=== PATIENT | male | born 1955 ===

== ENCOUNTER 2018-02-11 00:09 | Day surgery (SDC) | payer BC ==
[~2018-02-11] VITALS: Ht 175.3 cm; Wt 79.8 kg
[2018-02-11] MEDS ORDERED: PROPOFOL EMUL(*) 10MG/ML 20 ML 40 ML ONE (07:02)
[2018-02-11 07:16] VITALS: BP 124/77
[2018-02-11] MEDS ORDERED: NORMOSOL R SOLN(*) 1000 ML BAG 1,000 ML IV PRN (08:00)
[2018-02-11] MEDS ORDERED: LIDOCAINE/SOD BICARB 8.4% SYR ID ONE (08:00)
[2018-02-11 09:38] VITALS: BP 100/71
--- NOTE | 2018-02-11 09:41 | Short(Outpt) Discharge Summary ---
Discharge Summary Reason for Hosp/Final Diag: (1) History of colon polyps Status: Chronic Hospital Course & Plan: Colonoscopy with polypectomy x1 completed without problems. Departure Discharge to: Home, Self Care Discharge Instructions Home Meds No Active Prescriptions or Reported Meds Diet: Regular Activity: As Tolerated Special Instructions: Your colonoscopy was completed without problems and your prep was excellent (Good Job!!). I removed a single small polyp from your colon and it was sent to pathology. My office will call you in the next week or so and let you know what the polyp is but your next colonoscopy should be in 5 years due to your previous history of colon polyps. LUL MCCALLUM MD Feb 11, 2018 09:41
[2018-02-11 10:00] VITALS: BP 140/52
[2018-02-11 10:18] VITALS: BP 126/86
[2018-02-11 10:20] VITALS: BP 128/87
== END 2018-02-11 10:25 | disposition home or self-care (01) ==
LOC: OR 00:09
PROVIDERS: ATTEND Surgery
DX: Z12.11 Encounter for screening for malignant neoplasm of colon (principal); D12.4 Benign neoplasm of descending colon; Z86.010 Personal history of colon polyps
CPT/HCPCS: 00811; 45385; 88305; J2704

== ENCOUNTER → 2018-08-18 | Outpatient (CLI) | payer BC ==
[~2018-08-18] MED LIST: TRIA15OI20 TP
[2018-08-18 08:44] LABS: PLATELET COUNT, AUTOMATED 263 K/uL (150-450)
[2018-08-18 09:24] LABS: LDL CHOLESTEROL 125 mg/dl
== END ==
LOC: LAB 08:07
PROVIDERS: ATTEND Internal Medicine
DX: Z00.00 Encounter for general adult medical examination without abnormal findings (principal); Z86.010 Personal history of colon polyps
CPT/HCPCS: 36415; 81001; 82040; 82247; 82310; 82374; 82435; 82465; 82565; 82947; 83718; 84075; 84132; 84153; 84155; 84295; 84443; 84450; 84460; 84478; 84520; 85025; 87522

== ENCOUNTER → 2018-08-24 | Outpatient (CLI) | payer BC ==
--- NOTE | 2018-08-24 09:50 | RADIOLOGY IMAGING REPORT ---
FACILITY: [facility] PATIENT NAME: Hipolito Morocho : 1955 MR: [id number] V: [id number] EXAM DATE: ORDERING PHYSICIAN: AMARA MARLOW TECHNOLOGIST: Location: [facility] - [place] Patient: Hipolito Morocho : 1955 Visit/Account:[id number] Date of Sevice: 08/24/2018 LIVER HISTORY: Elevated liver enzymes, hepatitis C COMPARISON: None. FINDINGS: Gallbladder: There is a 4.6 mm nonshadowing nonmobile echogenic focus along the wall of the gallbladd er which may represent a small polyp Liver: Negative. Common duct: Normal, 4.9 mm diameter. Pancreas: Partially obscured by bowel, visualized aspects unremarkable. Right kidney: Right kidney appears unremarkable measuring 11.4 cm in length Upper abdominal aorta and IVC: Patent. Ascites: None visualized. IMPRESSION: 4.6 mm nonshadowing nonmobile echogenic focus along the wall of the gallbladder which likely represen ts a small polyp Liver appears sonographically unremarkable Report Dictated By: Shell Davis MD at 08/24/2018 9:43 AM Report E-Signed By: Shell Davis MD at 08/24/2018 9:46 AM WSN:[email or web address]
--- NOTE | 2018-08-24 10:01 | RADIOLOGY IMAGING REPORT ---
FACILITY: [facility] - [place] PATIENT NAME: Hipolito Morocho : 1955 MR: [id number] V: [id number] EXAM DATE: ORDERING PHYSICIAN: AMARA MARLOW TECHNOLOGIST: Location: [facility] - [place] Patient: Hipolito Morocho : 1955 Visit/Account:[id number] Date of Sevice: 08/24/2018 CERVICAL SPINE 2 OR 3 VIEW Indication: Pain., Comparison: None available. Findings: The prevertebral soft tissues are within normal limits. The vertebral body heights are well maintained. There is moderate diffuse multilevel degenerative disc space disease with disc space narrowing greate st at C4-5, C5-6 and C6-7. There is a grade 1, 4 mm retrolisthesis of C5 on C6. Moderate anterior e ndplate osteophytes are present. IMPRESSION: 1. Multilevel degenerative disc space disease as described, no acute abnormalities noted. Report Dictated By: Jw Burns at 08/24/2018 9:54 AM Report E-Signed By: Jw Burns at 08/24/2018 9:56 AM WSN:[email or web address]
== END ==
LOC: US 00:52
PROVIDERS: ATTEND Internal Medicine
DX: M47.892 Other spondylosis, cervical region (principal); K82.4 Cholesterolosis of gallbladder
CPT/HCPCS: 72040; 76705

== ENCOUNTER → 2018-08-26 | Outpatient (CLI) | payer BC ==
[2018-08-26 11:04] LABS: INR 1.05
== END ==
LOC: LAB 10:23
PROVIDERS: ATTEND Internal Medicine
DX: Z86.19 Personal history of other infectious and parasitic diseases (principal); R94.5 Abnormal results of liver function studies
CPT/HCPCS: 36415; 80074; 82040; 82247; 82310; 82374; 82435; 82565; 82947; 84075; 84132; 84155; 84295; 84450; 84460; 84520; 85610

== ENCOUNTER → 2018-09-21 | Outpatient (CLI) | payer BC ==
[~2018-09-21] MED LIST changes: +DIAZ-308 PO; +HEPA1DIS3 IM
[2018-09-21 11:56] LABS: INR 1.03
== END ==
LOC: LAB 11:08
PROVIDERS: ATTEND Surgery
DX: Z01.812 Encounter for preprocedural laboratory examination (principal); R94.5 Abnormal results of liver function studies; Z86.19 Personal history of other infectious and parasitic diseases
CPT/HCPCS: 36415; 85610

== ENCOUNTER 2018-09-22 09:47 | Day surgery (SDC) | payer BC ==
[2018-09-22 11:15] VITALS: BP 129/79
[2018-09-22 11:45] VITALS: BP 118/72
[2018-09-22 12:45] VITALS: BP 139/76
[2018-09-22 13:45] VITALS: BP 111/61
[2018-09-22 14:45] VITALS: BP 113/70
--- NOTE | 2018-09-22 15:26 | NUR ---
1115- PT. RECEIVED FROM RADIOLOGY VIA WHEELCHAIR. SBAR RECEIVED FROM [facility]. PT. A+O X4. SEE ADMISSION ASSESSMENT. 1145- PT. STATES THAT THEY FEEL FINE AND LEFT TO RUN ERRANDS AND GET THE PT. SOME FOOD. 1215- PT. GIVEN CHOCOLATE PUDDING AND LAB HERE TO DRAW BLOOD. 1236- PT. AT BEDSIDE WITH LUNCH THAT IS A HAMBURGER AND A CUP OF TEA. 1315- LAB HERE TO DRAW BLOOD AGAIN. 1410- PT. GIVEN ICE WATER 1440- PT. AND GIVEN DISCHARGE INSTRUCTIONS AND THEY STATED UNDERSTANDING. 1500- PT. UP TO THE BATHROOM 1510- PT. GETTING DRESSED. 1512- DR. EDOUARD CALLED AND SHE STATED THAT THE PT. WAS GOOD TO GO HOME. 1514- I TOOK THE PT. IV OUT AND APPLIED A PRESSURE DRESSING. 1520- PT. ACCOMPANIED OUT TO VEHICLE WITH AND FERMIN ALVAREZ.
--- NOTE | 2018-09-22 16:34 | RADIOLOGY IMAGING REPORT ---
FACILITY: [facility] [place] PATIENT NAME: Hipolito Morocho : 1955 MR: [id number] V: [id number] EXAM DATE: ORDERING PHYSICIAN: LUL MCCALLUM TECHNOLOGIST: Location: [facility] [place] Patient: Hipolito Morocho : 1955 Visit/Account:[id number] Date of Sevice: 09/22/2018 Exam type: CT GUIDED BIOPSY LIVER History: Random liver biopsy, history of hepatitis C Comparison: Liver ultrasound August 24, 2018. Findings: Multiple axial images were obtained through the liver without contrast the localizer biopsy site for patient's random liver biopsy. Dose Lowering Technique One of the following dose optimization techniques was utilized in the performance of this exam: Autom ated exposure control; adjustment of the mA and/or kV according to the patient's size; or use of an i terative reconstruction technique. Specific details can be referenced in the facility's radiology C T exam operational policy. The patient's right lateral abdomen was prepped and draped usual sterile fashion. Local anesthesia w as accomplished 1% lidocaine. A 19-gauge trocar was advanced percutaneously through the anterolatera l right side of the abdomen to just proximal to the liver. Four 20-gauge core biopsies were obtained through the right lobe the liver. Samples were placed in formalin and sent to laboratory for evalua tion. The post biopsy CT demonstrated no evidence of a postbiopsy complication. Incidentally noted are several calculi in both renal collecting systems. The patient was sent to observation for four h ours and was discharged home in no apparent distress IMPRESSION: 1. Successful CT-guided random liver biopsy Report Dictated By: Shell Davis MD at 09/22/2018 4:25 PM Report E-Signed By: Shell Davis MD at 09/22/2018 4:29 PM WSN:[email or web address]
[2018-10-02] MEDS ORDERED: HEPA1DIS3 IM (09:54)
== END 2018-09-22 15:20 | disposition home or self-care (01) ==
LOC: OR 09:47
PROVIDERS: ATTEND Surgery
DX: R74.8 Abnormal levels of other serum enzymes (principal); Z86.19 Personal history of other infectious and parasitic diseases
CPT/HCPCS: 36415; 47000; 77012; 85018; 88305; 88313

== ENCOUNTER → 2019-01-20 | Outpatient (CLI) | payer BC ==
[~2019-01-20] MED LIST changes: +SOFO1TAB PO
[2019-01-20 11:59] LABS: PLATELET COUNT, AUTOMATED 254 K/uL (150-450)
== END ==
LOC: LAB 11:39
PROVIDERS: ATTEND Internal Medicine
DX: B18.2 Chronic viral hepatitis C (principal)
CPT/HCPCS: 36415; 82040; 82247; 82310; 82374; 82435; 82565; 82947; 84075; 84132; 84155; 84295; 84450; 84460; 84520; 85025